=== PATIENT | male | born 1985 | race Caucasian/White ===

== ENCOUNTER 2017-09-16 11:27 | Day surgery (SDC) | payer OTHER ==
[2017-09-16] MEDS ORDERED: LIDOCAINE 1% MDV 20ML VIAL SQ (11:45)
[2017-09-16] MEDS: LR 1,000 ML IV (12:14)
[2017-09-16] MEDS: BACITRACIN OINT 30GM As Ordered (13:06)
[2017-09-16] MEDS ORDERED: PROPOFOL 200 MG/20 ML VIAL As Ordered ×2 (13:25→14:03)
[2017-09-16] MEDS ORDERED: fentaNYL 250 MCG/5 ML INJECTION (J3010) As Ordered (13:25)
[2017-09-16] MEDS ORDERED: MIDAZOLAM INJ 2 MG/2 ML VIAL (J2250) As Ordered (13:25)
[2017-09-16] MEDS ORDERED: LIDOCAINE 2% INJ 100 MG/5 ML SDV (FOR ANES.) As Ordered (13:25)
[2017-09-16] MEDS ORDERED: ROCURONIUM BROMIDE 50 MG/5 ML VIAL As Ordered (13:25)
[2017-09-16] MEDS ORDERED: METOCLOPRAMIDE INJ 10MG/2ML VIAL (J2765) As Ordered (14:04)
[2017-09-16] MEDS ORDERED: NEOSTIGMINE 10 MG/10 ML VIAL (J2710) As Ordered (14:04)
[2017-09-16] MEDS ORDERED: ONDANSETRON 4MG/2ML VIAL (J2405) As Ordered (14:04)
[2017-09-16] MEDS ORDERED: GLYCOPYRROLATE INJ 0.2 MG/ML 2 ML VIAL As Ordered (14:04)
[2017-09-16] MEDS ORDERED: KETOROLAC 60 MG/2 ML VIAL (J1885) As Ordered (14:04)
[2017-09-16] MEDS ORDERED: dexameTHASONE 4 MG/ML 1ML VIAL (J1100) As Ordered ×2 (14:04)
[2017-09-16] MEDS: LIDOCAINE W/EPINEPHRINE 1% 20ML VIAL As Ordered (14:27)
[2017-09-16] MEDS ORDERED: PERCOCET 5MG/325MG TAB As Ordered (14:47)
[2017-09-16] MEDS: PERCOCET 5MG/325MG TAB PO (14:48)
[2017-09-16] MEDS ORDERED: fentaNYL 100 MCG/2 ML INJECTION (J3010) IV (15:00)
[2017-09-16] MEDS ORDERED: HYDROMORPHONE HCL 0.5 MG/ 0.5 ML SYRINGE (J1170 PER 1) IV (15:00)
[2017-09-16] MEDS ORDERED: LR 1,000 ML IV (15:00)
[2017-09-16] MEDS ORDERED: ONDANSETRON 4MG/2ML VIAL (J2405) IV (15:00)
[2017-09-16] MEDS ORDERED: PERCOCET 5MG/325MG TAB PO (15:00)
[2017-09-16] MEDS ORDERED: IBUPROFEN 800 MG TAB PO (20:00)
== END 2017-09-16 15:58 | disposition home or self-care (01) ==
LOC: M SDC 11:27
DX: D17.1 Benign lipomatous neoplasm of skin and subcutaneous tissue of trunk (principal); F17.210 Nicotine dependence, cigarettes, uncomplicated
CPT/HCPCS: 11424